=== PATIENT | female | born 1980 | race Caucasian/White ===

== ENCOUNTER 2024-04-03 16:15 | Outpatient (CLI) | payer OTHER, SELFPAY | END 2024-04-03 16:16 | disposition home or self-care (01) | PROVIDERS: Visit Provider Physician Assistant | DX: L76.11 Accidental puncture and laceration of skin and subcutaneous tissue during a dermatologic procedure (principal); Z56.89 Other problems related to employment; W46.1XXA Contact with contaminated hypodermic needle, initial encounter | CPT/HCPCS: 86703; 86706; 86803; 87340 ==

== ENCOUNTER 2024-12-29 09:15 | Outpatient (CLI) | payer OTHER, SELFPAY | END 2024-12-29 09:16 | disposition home or self-care (01) | LOC: FRMREF 09:16 | PROVIDERS: Visit Provider Physician Assistant Medical | DX: R05.9 Cough, unspecified (principal); R06.2 Wheezing | CPT/HCPCS: 87804 ==